=== PATIENT | male | born 1980 | race Caucasian/White ===

== ENCOUNTER 2017-03-18 12:33 | Emergency (ER) | payer MEDICAID ==
[~2017-03-18] VITALS: Ht 180.3 cm; Wt 89.4 kg
[2017-03-18 12:57] VITALS: BP_SYST 149
--- NOTE | 2017-03-18 12:58 | NUR ---
Patient to ER bed 2 to gown for evaluation. Side rails up.
--- NOTE | 2017-03-18 13:00 | NUR ---
Pt presents to ER c/o sore throat since last night. Pt reports pain level 8/10 in throat. Pt denies any fever or coughs. Pt in no acute distress, AOX4, allergy to penicllin noted.
--- NOTE | 2017-03-18 13:15 | NUR ---
ER at bedside examining patient.
--- NOTE | 2017-03-18 13:40 | NUR ---
Rapid strep swab taken and sent to lab.
[2017-03-18] MEDS: KETOROLAC TROMETHAMINE 60 MG/2 ML VIAL IM ONE (13:47)
[2017-03-18] MEDS: DEXAMETHASONE SOD PHOSPHATE 10 MG/ML VIAL IM ONE (13:48)
--- NOTE | 2017-03-18 13:51 | NUR ---
Pt medicated and tolerated well. Will continuet to monitor.
[2017-03-18 14:35] VITALS: BP_SYST 149
--- NOTE | 2017-03-18 14:35 | NUR ---
Patient given written and verbal discharge instructions and verbalizes understanding. ER MD discussed with patient the results and treatment provided. Patient in stable condition. ID arm band removed. Rx of Motrin, Clindamycin, & Prednisone given. Patient educated on pain management and to follow up with PMD. Pain Scale 3/10. Opportunity for questions provided and answered.
== END 2017-03-18 14:35 | disposition home or self-care (01) ==
LOC: SED 12:34
DX: J02.9 Acute pharyngitis, unspecified (principal); R03.0 Elevated blood-pressure reading, without diagnosis of hypertension; Z88.0 Allergy status to penicillin
CPT/HCPCS: 36415; 86403; 87081; 96372; 99284; J1100; J1885

== ENCOUNTER 2017-12-18 10:56 | Emergency (ER) | payer MEDICAID ==
[~2017-12-18] VITALS: Ht 180.3 cm; Wt 88.5 kg
[2017-12-18 11:00] VITALS: BP_SYST 145
[2017-12-18 12:12] VITALS: BP_SYST 142
== END 2017-12-18 12:12 | disposition home or self-care (01) ==
LOC: SED 10:56
DX: S39.012A Strain of muscle, fascia and tendon of lower back, initial encounter (principal); R03.0 Elevated blood-pressure reading, without diagnosis of hypertension; Z88.0 Allergy status to penicillin; X50.0XXA Overexertion from strenuous movement or load, initial encounter; Y93.89 Activity, other specified; Y92.89 Other specified places as the place of occurrence of the external cause; Y99.8 Other external cause status
CPT/HCPCS: 72100-TC; 99284

== ENCOUNTER 2019-02-04 22:42 | Emergency (ER) | payer MEDICAID ==
[~2019-02-04] VITALS: Ht 182.9 cm; Wt 90.7 kg
[2019-02-04 22:57] VITALS: BP_SYST 168
--- NOTE | 2019-02-05 02:00 | NUR ---
Called in x 3, no answer
--- NOTE | 2019-02-05 02:00 | NUR ---
Patient left without being seen. No further treatment provided. ER MD aware
== END 2019-02-05 02:00 | disposition left against medical advice (07) ==
LOC: SED 22:42
DX: R21 Rash and other nonspecific skin eruption (principal); Z53.21 Procedure and treatment not carried out due to patient leaving prior to being seen by health care provider